=== PATIENT | female | born 1955 | race Caucasian/White ===

== ENCOUNTER 2020-06-07 18:45 | Inpatient (IN) | payer BC ==
[~2020-06-07] VITALS: Ht 172.7 cm; Wt 68.2 kg
[2020-06-07 18:58] VITALS: BP 182/89
[2020-06-07 20:03] LABS: BILIRUBIN Negative; BLOOD 2+ (NEGATIVE); CLARITY Clear (CLEAR); COLOR Yellow (YELLOW); GLUCOSE Negative; KETONE Trace; LEUKO ESTERASE Negative (NEGATIVE); NITRITE Negative (NEGATIVE); PH 5.5 (4.5-8.0)
[2020-06-07 20:04] LABS: BACTERIA 2+; MUCOUS 2+; WBC 0-2 wbc/hpf (0-5)
[2020-06-07 20:12] LABS: BASO % 0.4 % (0.0-1.0); EOS # 0.1 10*3/uL (0.0-0.4); EOS % 0.8 % (1.0-4.0); HEMATOCRIT 41.5 % (37.0-47.0); LYMPH # 1.3 10*3/uL (1.3-4.4); LYMPH % 12.6 % (27.0-41.0); MEAN CELL VOLUME 91.4 fl (81.0-99.0); MEAN CORPUSCULAR HGB 29.5 pg (27.0-31.0); MEAN CORPUSCULAR HGB CONC 32.3 g/dl (33.0-37.0); MEAN PLATELET VOLUME 11.2 fl (9.6-12.3); MONO # 0.7 10*3/uL (0.1-1.0); MONO % 6.9 % (3.0-9.0); NEUT # 8.1 10*3/uL (2.3-7.9); NEUT % 79.2 % (47.0-73.0); PLATELET COUNT AUTOMATED 217 10*3/uL (130-400); RED BLOOD COUNT 4.54 10*6/uL (4.10-5.10); RED CELL DISTRI WIDTH 14.6 % (0-14.5); WHITE BLOOD COUNT 10.2 10*3/uL (4.8-10.8)
--- NOTE | 2020-06-07 20:24 | NUR ---
PATIENT AMBULATORY TO THE BATHROOM. AWAITING TO BE TAKEN TO CT. CALL LIGHT IN REACH.
[2020-06-07 20:32] LABS: ALBUMIN 3.7 gm/dl (3.1-4.5); ALKALINE PHOSPHATASE 108 U/L (45-117); BUN 13 mg/dl (7-24); CHLORIDE 108 mmol/L (98-107); CREATININE 0.65 mg/dL (0.55-1.02); LIPASE 60 U/L (73-393); POTASSIUM 3.4 mmol/L (3.5-5.1); SGOT/AST 13 IU/L (3-35); SGPT/ALT 22 U/L (12-78); SODIUM 139 mmol/L (136-145); TOTAL PROTEIN 8.3 gm/dL (6.4-8.2)
[2020-06-07 20:33] LABS: TROPONIN I < 0.015 ng/ml (<0.045)
--- NOTE | 2020-06-07 20:51 | NUR ---
PATIENT IS BEING TAKEN TO CT VIA STRETCHER.
[2020-06-08] VITALS (7 sets, daily range): BP systolic 143–172; BP diastolic 81–95
--- NOTE | 2020-06-08 01:00 | NUR ---
A 65, admitted to 5E, under the services of MANDA Diaz DO with a diagnosis of CHOLECYSTITIS, ADRENAL MASS, ANEURYSM OF AORTA, CHOLELITHIASIS. Chief complaint is RUQ ABDOMINAL PAIN. Patient arrived via stretcher from ER. Monitor applied. Initial assessment completed. Vital signs taken and recorded. MANDA DIAZ DO notified of admission to the unit. Orders received. See assessment for past medical history, medications and allergies. Patient and/or family oriented to unit. [facility] visitation policy reviewed. Clothing/patient valuable form completed. WIN VERONICA
--- NOTE | 2020-06-08 01:15 | NUR ---
DR CUETO NOTIFIED THAT PT BLOOD PRESSURE IS 172/90 MANUALLY. PHYSICIAN ALSO NOTIFIED THAT PT IS NOT ON ANY HOME MEDICATIONS. NEW ORDERS RECEIVED.
[2020-06-08 06:07] LABS: BASO % 0.4 % (0.0-1.0); EOS # 0.1 10*3/uL (0.0-0.4); EOS % 1.2 % (1.0-4.0); HEMATOCRIT 41.7 % (37.0-47.0); LYMPH # 1.6 10*3/uL (1.3-4.4); LYMPH % 17.7 % (27.0-41.0); MEAN CELL VOLUME 91.2 fl (81.0-99.0); MEAN CORPUSCULAR HGB 29.3 pg (27.0-31.0); MEAN CORPUSCULAR HGB CONC 32.1 g/dl (33.0-37.0); MEAN PLATELET VOLUME 11.1 fl (9.6-12.3); MONO # 0.8 10*3/uL (0.1-1.0); MONO % 8.6 % (3.0-9.0); NEUT # 6.5 10*3/uL (2.3-7.9); NEUT % 71.8 % (47.0-73.0); PLATELET COUNT AUTOMATED 201 10*3/uL (130-400); RED BLOOD COUNT 4.57 10*6/uL (4.10-5.10); RED CELL DISTRI WIDTH 14.6 % (0-14.5)
[2020-06-08 06:10] LABS: ALBUMIN 3.6 gm/dl (3.1-4.5); ALKALINE PHOSPHATASE 110 U/L (45-117); BUN 9 mg/dl (7-24); CHLORIDE 109 mmol/L (98-107); CHOLESTEROL 156 mg/dL (<200); CREATININE 0.71 mg/dL (0.55-1.02); POTASSIUM 3.4 mmol/L (3.5-5.1); SGOT/AST 14 IU/L (3-35); SODIUM 140 mmol/L (136-145); TOTAL PROTEIN 8.1 gm/dL (6.4-8.2); TRIGLYCERIDES 69 mg/dl (<150); VLDL CHOLESTEROL 14 mg/dL (6-40)
[2020-06-08 06:17] LABS: HDL CHOLESTEROL 59 mg/dl (40-60); LDL CHOLESTEROL 83 mg/dL (9-159); SGPT/ALT 20 U/L (12-78)
--- NOTE | 2020-06-08 07:42 | NUR ---
DR PAZ NOTIFIED OF CONSULT AND STATES HE WILL SEE PATIENT WHEN HE COMES DOWN TO DO ROUNDS.
--- NOTE | 2020-06-08 07:43 | NUR ---
CALLED REGARDING REPEAT BP TAKEN. THIS NURSE OBTAINED MANUAL BP OF 172/88. NOTIFIED. NEW ORDERS TO BE ENTERED PER PHYSICIAN.
--- NOTE | 2020-06-08 07:57 | NUR ---
IV APRESOLINE 10MG GIVEN SLOWLY PER ORDER FOR ELEVATED BP. UPON ASSESSMENT, PATIENT VERY UPSET REGARDING NPO ORDER AND IS EXPECTING SURGERY TO BE DONE TODAY. PT ALSO C/O NOT BEING ABLE TO GO OUTSIDE AND SMOKE. THIS NURSE UPDATED PATIENT ON PLAN OF CARE AND NO SMOKING POLICY.
--- NOTE | 2020-06-08 07:58 | NUR ---
NICODERM PATCH APPLIED PER ORDER FOR NICOTINE WITHDRAWAL.
--- NOTE | 2020-06-08 09:00 | NUR ---
IN TO SEE PATIENT.
--- NOTE | 2020-06-08 10:17 | NUR ---
PT MEDICATED WITH PO TYLENOL PER PRN ORDER FOR C/O HEADACHE. WILL MONITOR EFFECTIVENESS.
--- NOTE | 2020-06-08 11:17 | NUR ---
TYLENOL EFFECTIVE PER PT. WILL CONTINUE TO MONITOR.
--- NOTE | 2020-06-08 16:00 | NUR ---
Patient resting quietly with no c/o discomfort. Respirations easy and regular. Vital signs stable. No overt distress. NAOMI LOVELL
--- NOTE | 2020-06-08 19:35 | NUR ---
PT AWAKE IN ROOM TALKING ON PHONE. PT DENIES ANY NEEDS. WILL MONITOR. CALL LIGHT IN REACH.
--- NOTE | 2020-06-08 21:39 | NUR ---
PO TYLENOL GIVEN FOR C/O PAIN IN STOMACH (ALL OVER) AND LOWER BACK PAIN RATED 6/10. WILL MONITOR EFFECTIVENESS. CALL LIGHT IN REACH.
--- NOTE | 2020-06-08 22:35 | NUR ---
EARLIER TYLENOL APPEARS EFFECTIVE. PT ASLEEP IN BED. NO S/S OF DISTRESS NOTED. WILL MONITOR. CALL LIGHT IN REACH.
[2020-06-09] VITALS: BP 141/73
--- NOTE | 2020-06-09 04:05 | NUR ---
PT ASLEEP IN BED. RESPIRATIONS EASY. NO S/S OF DISTRESS NOTED. WILL MONITOR. CALL LIGHT IN REACH.
[2020-06-09 08:00] VITALS: BP 152/84
--- NOTE | 2020-06-09 08:49 | NUR ---
PATIENT REMAINS IN ULTRASOUND FOR GALLBLADDER ULTRASOUND. SURGERY RN INQUIRING IF PATIENT IS READY FOR SURGERY; SHE IS CALLING ULTRASOUND DEPT. FOR THE PATIENT.
--- NOTE | 2020-06-09 08:56 | NUR ---
PATIENT RETURNED FROM ULTRASOUND, NOW TO OR BY BED FOR CHOLECYSTECTOMY.
[2020-06-09 09:12] VITALS: BP 172/96
--- NOTE | 2020-06-09 09:57 | NUR ---
PER SURGERY STAFF, CHOLECYSTECTOMY CANCELLED DUE TO INCIDENTAL FINDINGS ON GALLBLADDER ULTRASOUND, WILL RESUME MEDS AND DIET UPON HER RETURN TO FLOOR. DR. PAZ WILL REQUIRE MEDICAL CLEARANCE IN ORDER TO PERFORM THE PROCEDURE.
--- NOTE | 2020-06-09 10:01 | NUR ---
[facility] OFFICE STAFF NOTIFIED OF THE CONSULT RE: MEDICAL CLEARANCE.
--- NOTE | 2020-06-09 11:06 | NUR ---
DR. COHEN NOTIFIED OF CONSULT, OBTAINED ORDER FOR CTA ABDOMEN FOR AORTIC AND ILEAC ARTERY, PATIENT INSTRUCTED TO REMAIN NPO FOR THE TEST.
--- NOTE | 2020-06-09 11:43 | NUR ---
Nutritional Support Services Note: Pt is awaiting possible gall bladder removal surgery. No compliants at this time. No vomiting, nausea noted. Will continue to follow. Sandra Gomez Rdn Ld
--- NOTE | 2020-06-09 11:44 | NUR ---
PATIENT TO CT FOR CTA ABDOMEN.
[2020-06-09 12:00] VITALS: BP 149/82
--- NOTE | 2020-06-09 14:25 | NUR ---
DR. COHEN NOTIFIED OF TODAY'S CTA ABDOMEN RESULTS. PER DR. COHEN SHE IS CLEARED FOR SURGERY; SHE MAY HAVE THE SURGERY TOMORROW AND HE WILL SEE HER TOMORROW AFTER SURGERY AND THEN IN HIS OFFICE OUTPATIENT.
--- NOTE | 2020-06-09 14:29 | NUR ---
DR. PAZ NOTIFIED OF DR. COHEN'S RECCOMMENDATIONS. OBTAINED ORDER TO RESCHEDULE THE CHOLECYSTECTOMY FOR TOMORROW, NPO MIDNIGHT.
--- NOTE | 2020-06-09 14:59 | NUR ---
[employer] in to talk to patient. Patient states lives at HOME with SON DAUGHTER [place]. There are 4 OUTSIDE steps in the home. Physician: NONE Pharmacy: [facility] Home health services: NONE Patient's level of ADLs: INDEPENDENT Patient has working utilities: YES DME: NONE Follow-up physician's appointment after d/c: WILL BE MADE BY HOSPITALIST NURSE DIRECTOR ON DISCHARGE Does patient want to access PORTAL?: N Discharge plan PT LIVES AT HOME WITH SON AND DAUGHTER IN [place] AND IS INDEPENDENT IN HER CARE. DENIES SHE WILL HAVE NEEDS ON DISCHARGE. PLAN IS TO RETURN HOME WHEN MEDICALLY STABLE. WILL CONTINUE TO FOLLOW. STATES SHE WILL HAVE A RIDE HOME.. TIANA MCCANN
[2020-06-09 16:00] VITALS: BP 126/82
[2020-06-09 20:00] VITALS: BP 144/77
--- NOTE | 2020-06-09 21:03 | NUR ---
PO TYLENOL GIVEN FOR C/O UPPER ABDOMINAL PAIN RATED 4/10. WILL MONITOR EFFECTIVENESS. CALL LIGHT IN REACH.
--- NOTE | 2020-06-09 22:00 | NUR ---
EARLIER MEDS APPEAR EFFECTIVE. PT RESTING IN BED. NO FURTHER COMPLAINTS. WILL MONITOR. CALL LIGHT IN REACH.
[2020-06-10] VITALS (9 sets, daily range): BP systolic 122–160; BP diastolic 74–87
--- NOTE | 2020-06-10 05:45 | NUR ---
PT AWAKE IN BED. IV SITES WRAPPED. PT SET UP FOR SHOWER. [employer] PROVIDED PT IS SCHEDULED FOR SURGERY TODAY AT 0730. WILL MONITOR.
[2020-06-10 06:27] LABS: BASO % 0.4 % (0.0-1.0); EOS # 0.3 10*3/uL (0.0-0.4); EOS % 3.5 % (1.0-4.0); HEMATOCRIT 40.2 % (37.0-47.0); LYMPH # 1.5 10*3/uL (1.3-4.4); LYMPH % 15.8 % (27.0-41.0); MEAN CELL VOLUME 91.8 fl (81.0-99.0); MEAN CORPUSCULAR HGB 29.2 pg (27.0-31.0); MEAN CORPUSCULAR HGB CONC 31.8 g/dl (33.0-37.0); MEAN PLATELET VOLUME 11.8 fl (9.6-12.3); MONO # 0.8 10*3/uL (0.1-1.0); MONO % 8.3 % (3.0-9.0); NEUT # 6.7 10*3/uL (2.3-7.9); NEUT % 71.7 % (47.0-73.0); PLATELET COUNT AUTOMATED 198 10*3/uL (130-400); RED BLOOD COUNT 4.38 10*6/uL (4.10-5.10); RED CELL DISTRI WIDTH 14.4 % (0-14.5); WHITE BLOOD COUNT 9.4 10*3/uL (4.8-10.8)
--- NOTE | 2020-06-10 06:40 | NUR ---
PT TAKEN OFF FLOOR FOR SCHEDULED SURGERY.
[2020-06-10 06:58] LABS: ALBUMIN 3.1 gm/dl (3.1-4.5); CHLORIDE 109 mmol/L (98-107); POTASSIUM 3.6 mmol/L (3.5-5.1); SODIUM 137 mmol/L (136-145)
[2020-06-10 07:03] LABS: ALKALINE PHOSPHATASE 95 U/L (45-117); BUN 17 mg/dl (7-24); CREATININE 0.73 mg/dL (0.55-1.02); SGOT/AST 12 IU/L (3-35); SGPT/ALT 14 U/L (12-78); TOTAL PROTEIN 7.9 gm/dL (6.4-8.2)
--- NOTE | 2020-06-10 07:15 | NUR ---
PATIENT IN OR FOR SURGERY AT PRESENT TIME.
--- NOTE | 2020-06-10 07:32 | NUR ---
PER SURGERY, PT'S RADIOLOGY DISC THAT REQUESTED IS IN PATIENT'S PHYSICAL CHART IN SURGERY.
--- NOTE | 2020-06-10 09:10 | NUR ---
PT OUT OF ROOM FOR SURGERY. 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 WILL CONTINUE TO FOLLOW.
--- NOTE | 2020-06-10 10:36 | NUR ---
PATIENT RETURNED FROM SURGERY, SEE SHIFT ASSESSMENTS FOR DETAILS.
[2020-06-10] MEDS ORDERED: Synthroid,Lev100 MCG PO (11:26)
[2020-06-10] MEDS ORDERED: AMLODIPINE BESYL5 MG PO (11:26)
[2020-06-10] MEDS ORDERED: LISINOPRIL20 MG PO (11:26)
[2020-06-10] MEDS ORDERED: VITAMIN D350 MC2 PO (11:26)
[2020-06-10] MEDS ORDERED: HYDROCODONE-AC1 EAC1 PO (11:26)
--- NOTE | 2020-06-10 13:14 | NUR ---
PATIENT ATE TOAST, BUTTER AND JELLY, TEA AND COFFEE FOR LUNCH, TOLERATED WELL, NO PAIN OR NAUSEA. DR. FUENTES IS ENTERING DISCHARGE ORDERS.
--- NOTE | 2020-06-10 14:24 | NUR ---
DR. COHEN NOTIFIED THAT PATIENT IS DISCHARGED. HE WILL SEE THE PATIENT BEFORE HE LEAVES D/T HE HAS A LOT OF IMPORTANT INFORMATION FOR THE PATIENT. PATIENT NOTIFIED THAT DR. COHEN WILL BE HERE BY ABOUT 3:30PM TO SEE HER BEFORE SHE LEAVES. SHE VERBALIZES UNDERSTANDING.
--- NOTE | 2020-06-10 15:01 | NUR ---
DR. COHEN IN TO SEE THE PATIENT.
--- NOTE | 2020-06-10 15:21 | NUR ---
Discharge instructions reviewed with patient. Patient receptive and verbalizes understanding. Follow-up care arranged. Written instructions given to patient. PATIENT DISCHARGED TO [facility] BY WHEELCHAIR, ACCOMPANIED BY [facility], FOR TRANSPORT HOME BY PRIVATE VEHICLE WITH HER DAUGHTER. JC CULP
== END 2020-06-10 15:21 | disposition home or self-care (01) | DRG 419 ==
LOC: ED 18:45 → 5E 23:41 → EDHOLD 23:41 → 5E 06-08 00:53
PROVIDERS: Emergency Medicine; Family Medicine; Student in an Organized Health Care Education/Training Program; ADMIT Internal Medicine; ATTEND Internal Medicine
PROC: 0FT44ZZ Resection of Gallbladder, Percutaneous Endoscopic Approach (ICD-10-PCS; principal; 2020-06-10)
DX: K80.00 Calculus of gallbladder with acute cholecystitis without obstruction (principal); E87.6 Hypokalemia; E88.09 Other disorders of plasma-protein metabolism, not elsewhere classified; R31.21 Asymptomatic microscopic hematuria; F17.210 Nicotine dependence, cigarettes, uncomplicated; Z71.6 Tobacco abuse counseling; I10 Essential (primary) hypertension; R73.9 Hyperglycemia, unspecified; E03.9 Hypothyroidism, unspecified; R73.03 Prediabetes; E83.41 Hypermagnesemia; E83.39 Other disorders of phosphorus metabolism; E27.8 Other specified disorders of adrenal gland; I71.4 Abdominal aortic aneurysm, without rupture

== ENCOUNTER 2020-08-04 19:36 | Emergency (ER) | payer BC ==
[~2020-08-04] VITALS: Ht 172.7 cm; Wt 68.0 kg
[~2020-08-04 19:36] MED LIST: AMLODIPINE BESYL5 MG PO; HYDROCODONE-AC1 EAC1 PO; LISINOPRIL20 MG PO; Synthroid,Lev100 MCG PO; VITAMIN D350 MC2 PO
== END 2020-08-04 21:45 | disposition home or self-care (01) ==
LOC: ED 19:36
DX: S96.911A Strain of unspecified muscle and tendon at ankle and foot level, right foot, initial encounter (principal); X50.1XXA Overexertion from prolonged static or awkward postures, initial encounter; Y93.89 Activity, other specified; Y92.89 Other specified places as the place of occurrence of the external cause; Y99.8 Other external cause status